=== PATIENT | male | born 1995 | race African-American/Black ===

== ENCOUNTER 2017-12-21 09:32 | Emergency (ER) | payer SELFPAY ==
[2017-12-21 09:45] VITALS: BP 134/80
[2017-12-21] MEDS ORDERED: METOCLOPRAMIDE HCL INJ/PF 10 MG/2 ML SDV IM ONE (09:56)
--- NOTE | 2017-12-21 09:58 | ER Document Report ---
ED Medical Screen (RME) - General Chief Complaint: Chest Pain Stated Complaint: CHEST TIGHTNESS, BACK PAIN, VOMITING Time Seen by Provider: 12/21/17 09:56 Notes: RAPID MEDICAL EVALUATION DISCLOSURE I have seen this patient as part of a Rapid Medical Evaluation and, if applicable, placed any initially appropriate orders. The patient will be seen and fully evaluated, including a full history and physical exam, by a provider ( in Main ED or Fast Track) when a room becomes available. 22-year-old male here with complaints of left-sided chest pain upper back pain left arm pain shortness of breath nausea vomiting that started approximately 1- 2 hours ago while he was sitting down doing paperwork. The symptoms were not worse with exertion or breathing. He describes the pain is minimal and, in fact , it has actually improved and is quite minimal at this time. He tried taking Advil however shortly after taking it he had an episode of emesis within minutes. He denies any history of CAD or family history of same. He denies hypertension diabetes hyperlipidemia tobacco/cocaine use. He has no prior history of DVT/PE or family history of same. Recent 5 [address] ride. Denies history of cancer or blood clotting disorder. EXAM CTAB RRR TRAVEL OUTSIDE OF THE [place] IN LAST 30 DAYS: No - Related Data Allergies/Adverse Reactions: No Known Allergies Allergy (Verified 12/21/17 09:33) Physical Exam - Vital signs Vitals: Temp Pulse Resp BP Pulse Ox 98.1 F 72 16 134/80 H 99 12/21/17 09:44 12/21/17 09:44 12/21/17 09:44 12/21/17 09:44 12/21/17 09:44 Course - Vital Signs Vital signs: Temp Pulse Resp BP Pulse Ox 98.1 F 72 16 134/80 H 99 12/21/17 09:44 12/21/17 09:44 12/21/17 09:44 12/21/17 09:44 12/21/17 09:44 Doctor's Discharge - Discharge Referrals: OFELIA DIAZ MD [Primary Care Provider] - Follow up as needed
--- NOTE | 2017-12-21 10:20 | RADIOLOGY REPORT (SQ) ---
EXAM DESCRIPTION: CHEST 2 VIEWS COMPLETED DATE/TIME: 12/21/2017 10:06 am REASON FOR STUDY: CP back pain SOB; ptx pna? COMPARISON: None. EXAM PARAMETERS: NUMBER OF VIEWS: two views TECHNIQUE: Digital Frontal and Lateral radiographic views of the chest acquired. RADIATION DOSE: NA LIMITATIONS: none FINDINGS: LUNGS AND PLEURA: No opacities, masses or pneumothorax. No pleural effusion. MEDIASTINUM AND HILAR STRUCTURES: No masses or contour abnormalities. HEART AND VASCULAR STRUCTURES: Heart normal size. No evidence for failure. BONES: No acute findings. HARDWARE: None in the chest. OTHER: No other significant finding. IMPRESSION: NO ACUTE RADIOGRAPHIC FINDING IN THE CHEST. TECHNICAL DOCUMENTATION: JOB ID: [id number] [email or web address]- All Rights Reserved Reading location - IP/workstation name: [email or web address]
--- NOTE | 2017-12-21 10:35 | ER Document Report ---
ED General - General Chief Complaint: Chest Pain Stated Complaint: CHEST TIGHTNESS, BACK PAIN, VOMITING Time Seen by Provider: 12/21/17 09:56 Notes: 22-year-old male here with complaints of left-sided chest pain upper back pain left arm pain shortness of breath nausea vomiting that started approximately 1- 2 hours ago while he was sitting down doing paperwork. The symptoms were not worse with exertion or breathing. He describes the pain is minimal and, in fact , it has actually improved and is quite minimal at this time. He tried taking Advil however shortly after taking it he had an episode of emesis within minutes. He denies any history of CAD or family history of same. He denies hypertension diabetes hyperlipidemia tobacco/cocaine use. He has no prior history of DVT/PE or family history of same. Recent 5 [address] ride. Denies history of cancer or blood clotting disorder. TRAVEL OUTSIDE OF THE [place] IN LAST 30 DAYS: No - Related Data Allergies/Adverse Reactions: No Known Allergies Allergy (Verified 12/21/17 09:33) Past Medical History - Social History Smoking Status: Never Smoker Frequency of alcohol use: Social Drug Abuse: None Family History: Reviewed & Not Pertinent Patient has suicidal ideation: No Patient has homicidal ideation: No Pulmonary Medical History: Reports: Hx Asthma - as child Renal/ Medical History: Denies: Hx Peritoneal Dialysis Review of Systems - Review of Systems Notes: See history of present illness for pertinent positive review of systems; otherwise all review of systems have been reviewed and are negative Physical Exam - Vital signs Vitals: Temp Pulse Resp BP Pulse Ox 98.1 F 72 16 134/80 H 99 12/21/17 09:44 12/21/17 09:44 12/21/17 09:44 12/21/17 09:44 12/21/17 09:44 - Notes Notes: PHYSICAL EXAMINATION: GENERAL: Well-appearing and in no acute distress. HEAD: Atraumatic, normocephalic. EYES: Pupils equal round and reactive to light, extraocular movements intact, sclera anicteric, conjunctiva are normal. ENT: nares patent, oropharynx clear without exudates. Moist mucous membranes. NECK: Normal range of motion, supple without lymphadenopathy LUNGS: CTAB and equal. No wheezes rales or rhonchi. HEART: Regular rate and rhythm without murmurs ABDOMEN: Soft, no tenderness. No facial grimacing/wincing upon palpation. No guarding, no rebound. EXTREMITIES: Normal range of motion, no pitting edema. No cyanosis. Tenderness to palpation of the right superior trapezius musculature. Tenderness to palpation of the musculature just inferior to the left scapula NEUROLOGICAL: Cranial nerves grossly intact. Normal sensory/motor exams. PSYCH: Normal mood, normal affect. SKIN: Warm, Dry, normal turgor, no rashes or lesions noted Course - Re-evaluation Re-evalutation: 12/21/17 10:30 MEDICAL DECISION MAKING: Concern for musculoskeletal strain versus pneumothorax versus pericarditis He has little to no risk factors for ACS/PE so I have low clinical suspicion for these etiologies Chest x-ray is unremarkable and patient is feeling much better after Reglan Discussed findings with him and home with prescriptions Zofran meloxicam Flexeril Instructed follow-up PCP next day or few Patient understands and agrees to the plan of care - Vital Signs Vital signs: Temp Pulse Resp BP Pulse Ox 98.1 F 72 16 134/80 H 99 12/21/17 09:44 12/21/17 09:44 12/21/17 09:44 12/21/17 09:44 12/21/17 09:44 Discharge - Discharge Clinical Impression: Chest pain in adult Condition: Good Disposition: HOME, SELF-CARE Additional Instructions: You were seen in the emergency department at [facility]. The x- ray did not show any emergency findings. Meloxicam is a very powerful anti- inflammatory pain medication and it will not make you sleepy. Flexeril is a very powerful muscle relaxant and it WILL make you sleepy. Zofran is a very powerful anti-vomiting medication and it will not make you sleepy. If you were given any sedating medications, such as Flexeril, be sure not to operate heavy machinery (example - driving) and be sure you are not too sedated to walk appropriately. Please followup with your primary physician in the next few days for further management/evaluation. Please return to the emergency department for worsening of symptoms or any symptom that you deem to be concerning or life-threatening. Thank you for allowing us to be part of your care. This documentation serves as your school / work note for your ER visit today. Prescriptions: Cyclobenzaprine HCl [Flexeril 5 mg Tablet] 5 mg PO TID #15 tablet Meloxicam 7.5 mg PO DAILYP PRN #7 tablet PRN Reason: Ondansetron [Zofran Odt 4 mg Tablet] 1 tab PO Q4H PRN #15 tab.rapdis PRN Reason: For Nausea/Vomiting Referrals: OFELIA DIAZ MD [Primary Care Provider] - Follow up as needed
--- NOTE | 2017-12-21 13:49 | EKG REPORT ---
SEVERITY:- OTHERWISE NORMAL ECG - SINUS RHYTHM SUPERIOR QRS AXIS : Confirmed by: Jayesh Miranda MD 21-Dec-2017 13:48:13
== END 2017-12-21 10:46 | disposition home or self-care (01) ==
LOC: ER 09:32
DX: R07.9 Chest pain, unspecified (principal); M54.6 Pain in thoracic spine; M79.602 Pain in left arm; R06.02 Shortness of breath; R11.2 Nausea with vomiting, unspecified; R11.10 Vomiting, unspecified; J45.909 Unspecified asthma, uncomplicated
CPT/HCPCS: 93005; 99285; 96372; 71046; 93010; J2765